=== PATIENT | male | born 1985 | race Two or more races ===

== ENCOUNTER 2024-05-25 12:51 | Inpatient (IN) | payer OTHER ==
[~2024-05-25] VITALS: Ht 167.6 cm; Wt 80.0 kg
[2024-05-25 14:09] LABS: Basophils # (auto) 0.1 10 ^3/uL (0-0.2); Basophils % (auto) 0.9 % (0.0-2.0); Eosinophils # (auto) 0 10 ^3/uL (0-0.8); Eosinophils % (auto) 0.5 % (0.0-7.0); Hematocrit 42.6 % (41.0-53.0); Hemoglobin 14.7 g/dL (13.5-17.5); Lymphocytes # (auto) 2.1 10 ^3/uL (0.4-5.4); Lymphocytes % (auto) 29.1 % (10.0-50.0); Mean Corpuscular Hgb Conc. 34.6 g/dL (32.0-36.0); Mean Corpuscular Volume 86.6 fL (80.0-100.0); Monocytes # (auto) 0.6 10 ^3/uL (0-1.3); Monocytes % (auto) 7.7 % (0.0-12.0); Neutrophils # (auto) 4.5 10 ^3/uL (1.6-8.6); Neutrophils % (auto) 61.8 % (37.0-80.0); Red Blood Cells 4.92 10^6/uL (4.5-5.90); White Blood Cell 7.2 10^3/uL (4.4-10.8)
[2024-05-25 14:29] LABS: Alanine Aminotransferase 17 U/L (7-40); Alkaline Phosphatase 69 U/L (46-116); Anion Gap 5 (5-15); Aspartate Aminotransferase 11 U/L (13-40); BUN/Creatinine Ratio 9.8 (10.0-20.0); Blood Urea Nitrogen 9 mg/dL (9-23); Calcium 10.3 mg/dL (8.7-10.4); Carbon Dioxide 28 mmol/L (20-30); Chloride 106 mmol/L (98-107); Glucose 96 mg/dL (74-106); Potassium 3.9 mmol/L (3.5-5.1); Sodium 139 mmol/L (136-145)
[2024-05-25 14:30] LABS: Albumin 4.7 g/dL (3.2-4.8); Bilirubin, Total 0.7 mg/dL (0.2-1.0); Total Protein 7.1 g/dL (5.7-8.2)
[2024-05-25] MEDS: IOHEXOL 300 MG/ML 100ML BOTTLE IJ ONE (15:07)
[2024-05-25 16:14] LABS: Prothrombin Time 10.6 sec (9.3-11.8)
[2024-05-25] MEDS: SODIUM CHLORIDE 0.9% 1,000 ML IV ONE (16:15)
[2024-05-25] MEDS: ONDANSETRON HCL 4 MG/2 ML VIAL IV PRN (16:15)
[2024-05-25] MEDS: PANTOPRAZOLE 40 MG/10 ML VIAL INJ IV ONE (16:15)
[2024-05-25] MEDS: MORPHINE SULFATE INJ 2 MG/ml SYRG IV PRN (16:16)
[2024-05-25 16:18] VITALS: PULSE 86; RESP 16; O2SAT 97
[2024-05-25] MEDS ORDERED: NITROGLYCERIN 0.4 MG SL TAB SL PRN (17:00)
[2024-05-25] MEDS ORDERED: MORPHINE SULFATE INJ 2 MG/ml SYRG IV PRN (17:00)
[2024-05-25] MEDS: SODIUM CHLORIDE 0.9% 1,000 ML IV SCH (19:41)
[2024-05-25] MEDS: HYDROcodone-ACET 5/325MG TAB PO PRN (20:41)
[2024-05-25 22:02] LABS: Urine Bacteria None Seen /hpf (None Seen)
[2024-05-25 22:16] LABS: Hematocrit 39.6 % (41.0-53.0); Hemoglobin 13.7 g/dL (13.5-17.5)
[2024-05-25 22:22] LABS: Urine Blood Negative /uL (Negative); Urine Clarity Clear (Clear); Urine Color Yellow (Yellow); Urine Mucus FEW (None Seen); Urine Protein, UAD TRACE (Negative); Urine Specific Gravity > 1.050 (1.001-1.035); Urine Urobilinogen Normal (Negative); Urine WBC 3 /hpf (0 - 3)
[2024-05-25 23:12] VITALS: PULSE 68; RESP 18; O2SAT 96
[2024-05-26] VITALS (9 sets, daily range): BP systolic 102–109; BP diastolic 62–71; PULSE 63–83; RESP 16–18; TEMP 97.3–98.2; O2SAT 96–99
[2024-05-26] MEDS ORDERED: BUPR150T18 PO (00:03)
[2024-05-26] MEDS ORDERED: DULO1CAP6 PO (00:03)
[2024-05-26] MEDS ORDERED: DULO1CAP5 PO (00:03)
[2024-05-26] MEDS ORDERED: OMEP1CAP70 PO (00:03)
[2024-05-26 06:04] LABS: Basophils # (auto) 0.1 10 ^3/uL (0-0.2); Basophils % (auto) 0.7 % (0.0-2.0); Eosinophils # (auto) 0.1 10 ^3/uL (0-0.8); Eosinophils % (auto) 1.2 % (0.0-7.0); Hematocrit 37.4 % (41.0-53.0); Hemoglobin 13.2 g/dL (13.5-17.5); Lymphocytes # (auto) 2.9 10 ^3/uL (0.4-5.4); Lymphocytes % (auto) 36.8 % (10.0-50.0); Mean Corpuscular Hemoglobin 30.4 pg (28.0-32.0); Mean Corpuscular Hgb Conc. 35.2 g/dL (32.0-36.0); Mean Corpuscular Volume 86.4 fL (80.0-100.0); Monocytes # (auto) 0.8 10 ^3/uL (0-1.3); Monocytes % (auto) 9.5 % (0.0-12.0); Neutrophils # (auto) 4.1 10 ^3/uL (1.6-8.6); Neutrophils % (auto) 51.8 % (37.0-80.0); Red Blood Cells 4.33 10^6/uL (4.5-5.90); Red Cell Distribution Width 12.7 % (11.8-14.3); White Blood Cell 7.9 10^3/uL (4.4-10.8)
[2024-05-26 06:17] LABS: Alanine Aminotransferase 14 U/L (7-40); Albumin 3.9 g/dL (3.2-4.8); Alkaline Phosphatase 55 U/L (46-116); Anion Gap 6 (5-15); BUN/Creatinine Ratio 13.8 (10.0-20.0); Blood Urea Nitrogen 12 mg/dL (9-23); Calcium 9.5 mg/dL (8.7-10.4); Carbon Dioxide 26 mmol/L (20-30); Chloride 109 mmol/L (98-107); Glucose 79 mg/dL (74-106); Potassium 3.8 mmol/L (3.5-5.1); Sodium 141 mmol/L (136-145)
[2024-05-26 06:19] LABS: Aspartate Aminotransferase 9 U/L (13-40); Bilirubin, Total 0.8 mg/dL (0.2-1.0); Total Protein 5.9 g/dL (5.7-8.2)
[2024-05-26 09:57] LABS: Hematocrit 37.4 % (41.0-53.0)
[2024-05-26] MEDS: ACETAMINOPHEN 325 MG TAB PO PRN (13:25)
[2024-05-26] MEDS: buPROPion HCL 75 MG TAB PO SCH (13:28)
[2024-05-26] MEDS: DULoxetine HCL 30 MG CAP PO SCH (13:31)
[2024-05-26 14:36] LABS: INR 1.03 (0.9-1.15); Partial Thromboplastin Time 29.3 SEC (24.5-34.5); Prothrombin Time 10.9 sec (9.3-11.8)
[2024-05-26 22:18] LABS: Hematocrit 38.1 % (41.0-53.0); Hemoglobin 13.2 g/dL (13.5-17.5)
[2024-05-27 05:25] VITALS: BP 111/72; PULSE 65; RESP 18; TEMP 97.6; O2SAT 98
[2024-05-27 07:06] LABS: PSA Free 0.12 ng/mL; Prostate Specific Antigen 0.5 ng/mL (0.0-4.0)
[2024-05-27 08:00] VITALS: PULSE 78; RESP 21; O2SAT 97
[2024-05-27] MEDS ORDERED: HYDR25SU21 PR (09:05)
[2024-05-27 09:23] VITALS: BP 110/78; PULSE 78; RESP 21; TEMP 98; O2SAT 97
[2024-05-27] MEDS ORDERED: DULoxetine HCL 30 MG CAP PO SCH (10:00)
[2024-05-27 10:41] VITALS: BP 110/70; PULSE 78; RESP 18; TEMP 97.9; O2SAT 90
== END 2024-05-27 12:00 | disposition home or self-care (01) | DRG 395 ==
LOC: ER 12:51 → OVERFLOW 16:49 → CENTRAL 22:20
PROVIDERS: ADMIT Nurse Practitioner Family; ATTEND Family Medicine
DX: K64.5 Perianal venous thrombosis (principal); K29.00 Acute gastritis without bleeding; K59.00 Constipation, unspecified; K21.9 Gastro-esophageal reflux disease without esophagitis; N40.0 Benign prostatic hyperplasia without lower urinary tract symptoms; F32.A Depression, unspecified; Z79.899 Other long term (current) drug therapy
CPT/HCPCS: 36415; 74177; 80053; 81001; 83605; 84154; 85014; 85018; 85025; 85610; 85730; 86850; 86900; 86901; G0378; J2405; J2470

== ENCOUNTER 2025-04-14 09:59 | Emergency (ER) | payer OTHER ==
[~2025-04-14] VITALS: Ht 182.9 cm; Wt 81.8 kg
[~2025-04-14 09:59] MED LIST: BUPR150T18 PO; DULO1CAP5 PO; DULO1CAP6 PO; HYDR25SU21 PR; OMEP1CAP70 PO
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
[2025-04-14 10:45] VITALS: PULSE 80; RESP 16; O2SAT 96
[2025-04-14] MEDS: SODIUM CHLORIDE 0.9% 1,000 ML IV ONE (10:53)
[2025-04-14] MEDS: ONDANSETRON HCL 4 MG/2 ML VIAL IV ONE (10:54)
[2025-04-14] MEDS: KETOROLAC TROMETH 30 MG/ML 1ML VIAL IV ONE (10:54)
[2025-04-14] MEDS: DexAMETHasone SOD PHOS 10MG/1ML VIAL INJ IV ONE (10:55)
[2025-04-14 11:33] LABS: Urine Bacteria None Seen /hpf (None Seen)
[2025-04-14 11:51] LABS: Urine Blood Negative /uL (Negative); Urine Clarity Clear (Clear); Urine Color Light-Yellow (Yellow); Urine Protein, UAD Negative (Negative); Urine Specific Gravity 1.011 (1.001-1.035); Urine Squamous Epithelial Cell None Seen /hpf (<5); Urine Urobilinogen Normal (Negative); Urine WBC < 1 /HPF (0-3)
[2025-04-14] MEDS: fentaNYL CITRATE 100 MCG/2 ML VL IV ONE (14:29)
[2025-04-14 16:43] VITALS: BP 126/72; PULSE 89; RESP 14; TEMP 99; O2SAT 96
== END 2025-04-14 17:09 | disposition short-term general hospital (02) ==
LOC: EDBD 09:59 → ER 09:59
DX: S32.009D Unspecified fracture of unspecified lumbar vertebra, subsequent encounter for fracture with routine healing (principal); S34.109D Unspecified injury to unspecified level of lumbar spinal cord, subsequent encounter; K21.9 Gastro-esophageal reflux disease without esophagitis; R53.1 Weakness; R20.2 Paresthesia of skin; Z79.899 Other long term (current) drug therapy; Z88.5 Allergy status to narcotic agent; X58.XXXD Exposure to other specified factors, subsequent encounter
CPT/HCPCS: 81001; 96361; 96374; 96375; 99285; J1100; J1885; J2405; J3010; J7030